=== PATIENT | female | born 1925 | race Hispanic/Latino ===

== ENCOUNTER 2016-12-08 13:54 | Outpatient (CLI) | payer MEDICARE ==
--- NOTE | 2016-12-08 16:33 | Mammography Report ---
Bilateral digital screening mammogram with CAD. Comparison studies dated December 08, 2015. Findings: There is a vague central parenchymal asymmetry in the right breast seen only on the CC projection. There are no suspicious microcalcifications. Bilateral benign calcifications are noted. No focal findings are seen on the left. Impression: Right parenchymal asymmetry. BI-RADS code: 0. Recommendation: Spot compression image, 90 degree view, and ultrasound if needed.
== END 2016-12-08 13:55 | disposition home or self-care (01) ==
LOC: MAMMO 13:54
PROVIDERS: ATTEND Internal Medicine
DX: Z12.31 Encounter for screening mammogram for malignant neoplasm of breast (principal)
CPT/HCPCS: 77067; G0202

== ENCOUNTER 2016-12-24 13:13 | Outpatient (CLI) | payer MEDICARE ==
--- NOTE | 2016-12-24 13:56 | Mammography Report ---
Right mammogram: Additional cc and lateral compression imaging is performed for asymmetry described on recent screening exam. The additional projections however demonstrate that the asymmetry has resolved and the findings are unchanged compared to her prior study in November 2015 and 2014 BI-RADS CATEGORY: 1 = Negative ACR BI-RADS MAMMOGRAPHIC CODES: 0 = Needs additional imaging evaluation; 1 = Negative; 2 = Benign; 3 = Probably benign; 4 = Suspicious; 5 = Malignant; 6 = Known biopsy-proven malignancy COMMENT: 1. Dense breast tissue, i.e., adenosis, fibrocystic changes, etc., may obscure an underlying neoplasm. 2. Approximately 10% of cancers are not detected with mammography. 3. A negative mammography report should not delay biopsy if a clinically suspicious mass is present.. Impression: Benign findings. Recommendation: Annual mammogram followup.
== END 2016-12-24 13:14 | disposition home or self-care (01) ==
LOC: MAMMO 13:13
PROVIDERS: ATTEND Internal Medicine
DX: R92.8 Other abnormal and inconclusive findings on diagnostic imaging of breast (principal)
CPT/HCPCS: G0206-RT